=== PATIENT | male | born 1945 | race Caucasian/White ===

== ENCOUNTER → 2018-03-15 | Outpatient (CLI) | payer OTHER | LOC: BHFA 11:00 | PROVIDERS: ATTEND Internal Medicine Cardiovascular Disease | DX: Z01.818 Encounter for other preprocedural examination (principal); I25.10 Atherosclerotic heart disease of native coronary artery without angina pectoris ==

== ENCOUNTER → 2018-04-20 | Outpatient (CLI) | payer OTHER | LOC: FIMAGING 08:40 | PROVIDERS: ATTEND Orthopaedic Surgery | DX: Z01.818 Encounter for other preprocedural examination (principal); M17.12 Unilateral primary osteoarthritis, left knee ==

== ENCOUNTER 2018-05-19 06:58 | Inpatient (IN) | payer OTHER ==
--- NOTE | 2018-05-19 05:46 | PDHPUP ---
History & Physical Update H&P update statement: This history and physical update is based on an assessment of the patient which was completed after admission or registration (within 24 hours), but prior to the surgery/procedure. H&P update: H&P reviewed & patient examined, no change in patient's condition since H&P completed
[~2018-05-19 06:58] MED LIST: ROPIVACAINE 0.2% 80 MG, EPINEPHrine 0.2 MG, KETOROLAC TROMETHAMINE 30 MG in SYRINGE 0 ML IU ONE; TRANEXAMIC ACID 3,000 MG in NS (SYRINGE) 50 ML IRR ONE
[2018-05-19] MEDS ORDERED: ACETAMINOPHEN 325 MG TAB PO ONE (07:15)
[2018-05-19] MEDS ORDERED: ceFAZolin 2 GM/DEXTROSE 100 ML IV ONE (07:15)
[2018-05-19] MEDS ORDERED: FAMOTIDINE 20 MG TAB PO ONE (07:15)
[2018-05-19] MEDS ORDERED: DEXAMETHASONE 4 MG/ML VIAL IVP ONE (07:15)
[2018-05-19] MEDS ORDERED: LR 1,000 ML IV ONE (07:19)
[2018-05-19] MEDS ORDERED: TRANEXAMIC ACID 3,000 MG/50 ML BAG IRR ONE (07:38)
[2018-05-19] MEDS ORDERED: PROPOFOL/EMULSION 500 MG/50 ML BOTTLE IV ONE (08:03)
[2018-05-19] MEDS ORDERED: LIDOCAINE 2% 5 ML SDV ONE (08:06)
[2018-05-19] MEDS ORDERED: BUPIVACAINE 0.5% 30 ML SDV ONE (08:53)
[2018-05-19] MEDS ORDERED: MIDAZOLAM 2 MG/2 ML VIAL ONE (08:58)
[2018-05-19] MEDS ORDERED: MIDAZOLAM 2 MG/2 ML VIAL IVP ONE (09:00)
--- NOTE | 2018-05-19 09:01 | PDANEPAE ---
ANE History of Present Illness left knee OA ANE Past Medical History - Cardiovascular History Hx Hypertension: No Hx Arrhythmias: No Hx Chest Pain: No Hx Coronary Artery / Peripheral Vascular Disease: Yes Hx CHF / Valvular Disease: No Hx Palpitations: No Cardiovascular History Comment: PTCA 1994. hypercholesterolemia - Pulmonary History Hx COPD: No Hx Asthma/Reactive Airway Disease: No Hx Recent Upper Respiratory Infection: No Hx Oxygen in Use at Home: No Hx Sleep Apnea: No Sleep Apnea Screening Result - Last Documented: Negative - Neurologic History Hx Cerebrovascular Accident: No Hx Seizures: No Hx Dementia: No - Endocrine History Hx Diabetes: No Hypothyroid: No Hyperthyroid: No Obesity: no - Renal History Hx Renal Disorders: No - Liver History Hx Hepatic Disorders: No - Neurological & Psychiatric Hx Hx Neurological and Psychiatric Disorders: No - Cancer History Hx Cancer: No - Congenital Disorder History Hx Congenital Disorders: No - GI History Hx Gastrointestinal Disorders: Yes Gastrointestinal History Comment: mild reflux - Other Health History Other Health History: wears glasses for reading. sinusitis - Chronic Pain History Chronic Pain: No - Surgical History Prior Surgeries: right total hip, 2012. left clavicle screws plates, 1999. achiles repair, 2006. left hand compression release, 2013 ANE Review of Systems Review of systems is: negative Review of Systems: - Exercise capacity METS (RN): 5 METS ANE Patient History - Allergies Allergies/Adverse Reactions: No Known Allergies Allergy (Verified 04/26/18 10:28) - Home Medications Home medications: home medication list seen and reviewed Home Medications: Aller-Jaimie D 5-120 mg Tablet 04/26/18 [Last Taken 05/19/18] Aspirin 81mg (*) 04/26/18 [Last Taken 05/05/18] Elemental Zinc 04/26/18 [Last Taken 05/05/18] Omeprazole 04/26/18 [Last Taken 05/18/18] Potassium Cl 04/26/18 [Last Taken 05/18/18] Pravastatin Sodium 04/26/18 [Last Taken Unknown] Vitamin C 04/26/18 [Last Taken 05/05/18] Vitamin D3 04/26/18 [Last Taken 05/05/18] - NPO status NPO Since - Liquids (Date): 05/19/18 NPO Since - Liquids (Time): 04:30 NPO Since - Solids (Date): 05/18/18 NPO Since - Solids (Time): 19:00 - Anes Hx Anes Hx: no prior problems - Smoking Hx Smoking Status: Former smoker - Family Anes Hx Family Hx Anesthesia Complications: none ANE Labs/Vital Signs - Vital Signs Blood Pressure: 142/90 Heart Rate: 69 Respiratory Rate: 16 O2 Sat (%): 89 Height: 171.45 cm Weight: 79.379 kg ANE Physical Exam - Airway Neck exam: FROM Mallampati Score: Class 2 Mouth exam: normal dental/mouth exam - Pulmonary Pulmonary: no respiratory distress - Cardiovascular Cardiovascular: regular rate and rhythym - ASA Status ASA Status: II ANE Anesthesia Plan Anesthesia Plan: spinal Regional Anesthesia: single shot NB, adductor canal FNB
--- NOTE | 2018-05-19 09:01 | POSTANESTH ---
Post Anesthetic Evaluation Cardiovascular Status: Normal, Stable Respiratory Status: Normal, Stable Level of Consciousness/Mental Status: Can Participate in Eval, Alert and Oriented Pain Control: Adequate, Prn Tx Ordered Nausea/Vomiting Control: Adequate, Prn Tx Ordered Complications Possibly Related to Anesthesia: None Noted
--- NOTE | 2018-05-19 09:40 | PDGENHP ---
History and Physical History and Physical: Last amended by Sangeeta Gómez PA-C on 05/19/2018 at 7:18am View Changes: Patient Name BRENDEN GOOD (72yo, M) ID# [id number] Appt. Date/Time 04/27/2018 10: 00AM 1945 Service Dept. MAIN OFFICE Provider SANGEETA GÓMEZ PA-C Insurance Med Primary: [place] (MEDICARE) Insurance # : [id number] Med Secondary: [employer] Insurance # : [id number] Policy/Group # : [id number] Prescription: DSTPSDIR - Member is eligible. details Chief Complaint Left CBB_discuss left knee surgery Pre-Op Left TKA Patient's Care Team Orthopedic Surgeon: JACQUI RODRIGUEZ MD: [id number] [facility] [address], [place] [address], , Orthopedic Surgeon: JOCELYN GÓMEZ M.D. Patient's Pharmacies [id number] ([facility]): [address] [facility] [id number], Ph [phone], Vitals Ht: 5 ft 8 in 04/27/2018 10:01 am Wt: 175 lbs 04/27/2018 10:02 am BMI: 26.6 04/27/2018 10:02 am BP: 122/85 sitting L arm 04/27/2018 10:01 am Pulse: 68 bpm 04/27/2018 10:01 am Allergies Reviewed Allergies Medications Reviewed Medications celecoxib 200 mg capsule take 2 capsules the night before surgery with dinner then one tab once daily with food for 3 weeks 04/27/18 prescribed Sangeeta Gómez PA-C omeprazole 40 mg capsule,delayed release 02/15/18 filled [employer] oxyCODONE 5 mg tablet Take 2 tabs every 4 hours as needed for pain 04/27/18 prescribed Sangeeta Gómez PA-C pravastatin 80 mg tablet 02/15/18 filled [employer] Vaccines None recorded. Problems Reviewed Problems Anxiety Osteoarthritis of knee - Onset: 07/15/2017 Chondromalacia of patella - Onset: 02/10/2018, Right Shoulder pain, Left Inflammation of sacroiliac joint Neck pain - Onset: 01/05/2017 Low back pain Prepatellar bursitis - Onset: 02/10/2018, Right Pain in buttock Glenoid labrum tear Family History Reviewed Family History Father - Heart disease - Malignant neoplastic disease Mother - Malignant neoplastic disease Sister - Malignant neoplastic disease Brother - Malignant neoplastic disease - Malignant neoplastic disease Social History Reviewed Social History Smoking Status: Former smoker Non-smoker Occupation: retired Chewing tobacco: none Alcohol intake: Occasional Alcohol-years of use: 55 Caffeine intake: Moderate Exercise level: Heavy Sporting activities: golf, hiking, treadmill, stationary bike, light weightlifting Hand Dominance: Right Education: 2 Year College Live alone or with others?: with others Surgical History Reviewed Surgical History Past Medical History Reviewed Past Medical History Heart Attack (CA): Y Screening None recorded. HPI [place] knee HPI Reported by patient. Location of symptoms: Left knee Symptoms: Pain; Decreased ROM Severity: severe Duration: many years Onset: chronic Exacerbated by: Walking; Physical activity; performs with symptoms Alleviated by: activity modifications; NSAIDs; PT/OT; cortisone injection; viscosupplement injection Associated Symptoms: no numbness; swelling Previous Surgery: surgical procedure: (open and scope menisectomy) Prior studies: radiographs Previous Injections: helped a little Previous PT: helped a little Work Related: no Notes: patient had many questions regarding surgery. All were addressed today. ROS ROS as noted in the HPI Physical Exam Patient is a 72-year-old male. Constitutional: General Appearance: healthy-appearing, NAD, and normal body habitus. Gait and Station: Appearance: ambulates with no assitive devices and antalgic gait. Cardiovascular System: Arterial Pulses Left: dorsalis pedis normal and posterior tibialis normal. Edema Left: no edema. Varicosities Left: no varicosities and capillary refill test normal. Lymph Nodes: Inspection/Palpation Left: no popliteal LAD. Knees: Inspection Left: no deformity, induration, warmth, or erythema and normal axial alignment and swelling. Bony Palpation Left: no tenderness of the lateral wall trochlear groove, the medial wall trochlear groove, the medial femoral condyle, or the adductor tubercle and tenderness of the medial joint line and the lateral joint line. Soft Tissue Palpation Left: no tenderness of the lateral patellar retinaculum, the medial patellar retinaculum, the prepatellar bursa, the patellar tendon, the fat pad, the medial collateral ligament, the pes anserinus, the saphenous nerve, the iliotibial tract, the lateral collateral ligament, the biceps femoris tendon, or the gastrocnemius and tenderness of the popliteal fossa. Active Range of Motion Left: crepitus and pain at extreme limits of range and normal, flexion normal, and extension normal. Stability Left: no laxity or subluxation and anterior drawer sign negative, posterior drawer sign negative, and ligamentous instability lateral with varus stress at 20-30 deg. grade 1. Strength Left: no hamstring weakness or quadriceps weakness and flexion 5/5 and extension 5/5. Skin: Left Lower Extremity: normal and (normal) lower extremities: knee: left: incision: well-healed. Neurologic: Sensation on the Left: T12 normal, L1 normal, L2 normal, L3 normal, L4 normal, L5 normal, and S1 normal. Psychiatric: Orientation: oriented to time, place, and person. Mood and Affect: normal mood and affect and active and alert. Heart Rate And Rhythm (normal) heart rate and rhythm. Lungs respirations unlabored. Assessment / Plan Left knee OA Previous xrays were reviewed today reveal severe DJD Discussed operative and non-operative interventions for diagnosis of knee arthritis with patient. Recommend Left TKA for treatment. Discussed risks and benefits of operative intervention including but not limited to bleeding, infection, need for further surgery, blood clots, blood clots going to the lungs and rare perioperative complications including stroke, heart attack and . Patient understands risks and wishes to proceed. Informed consent was obtained today Postoperative medications were written today including ASA for VTE prophylaxis postop Left TKAscheduled received cards letter, CBC WNL, Ct obtained. PCP appt on . history of DENISE in 2011 anterior approach pain controlled with oxycodone comorbidities: GERD and hyperlipidemia, history of skin issues Patient was given a hard copy of CI Beneficiary Notification Letter at today' s appointment. 1. Acute postoperative pain G89.18: Other acute postprocedural pain oxycodone 5 mg tablet - Take 2 tabs every 4 hours as needed for pain Qty: 84 tablet(s) Refills: 0 Pharmacy: [facility] [id number] Note to Pharmacy: postop TKA pain medication 2. Prophylactic anticoagulation given Z76.89: Persons encountering health services in other specified circumstances celecoxib 200 mg capsule - take 2 capsules the night before surgery with dinner then one tab once daily with food for 3 weeks Qty: 23 capsule(s) Refills : 0 Pharmacy: [facility] [id number] Note to Pharmacy: no refills, patient must contact provider first 3. Localized, primary osteoarthritis M17.12: Unilateral primary osteoarthritis, left knee Return to Office LEDY Apple for OT/PT New Eval 30 at PT on 05/29/2018 at 01:30 PM LEDY Apple for OT/PT Follow-Up at PT on 06/01/2018 at 10:30 AM Sangeeta Gómez PA-C for Post Op Visit at MAIN OFFICE on 06/05/2018 at 11:30 AM Jocelyn Gómez M.D. for Post Op Visit at MAIN OFFICE on 06/29/2018 at 11 :00 AM Jocelyn Gómez M.D. for Post Op Visit at MAIN OFFICE on 08/03/2018 at 11 :45 AM Amendment Sign-Off Encounter signed-off by Sangeeta Gómez PA-C, 05/19/2018. Encounter performed and documented by Sangeeta Gómez PA-C Encounter reviewed & signed by Sangeeta Gómez PA-C on 04/27/2018 at 10:27am Amendment closed by Sangeeta Gómez PA-C on 05/19/2018 at 7:18am There is not enough information to calculate an E&M code
[2018-05-19] MEDS ORDERED: fentaNYL 100 MCG/2 ML INJ ONE (09:44)
[2018-05-19] MEDS ORDERED: HYDROCODONE/APAP 5/325 TAB PO PRN (09:46)
[2018-05-19] MEDS ORDERED: LR 500 ML IV PRN (09:46)
[2018-05-19] MEDS ORDERED: ACETAMINOPHEN 500 MG TAB PO PRN (09:46)
[2018-05-19] MEDS ORDERED: ONDANSETRON 4 MG/2 ML VIAL IVP PRN ×2 (09:46→10:51)
[2018-05-19] MEDS ORDERED: NALOXONE HCL 0.4 MG/ML INJ IVP PRN (09:46)
[2018-05-19] MEDS ORDERED: oxyCODONE IR 5 MG TAB PO PRN ×2 (09:46→10:51)
[2018-05-19] MEDS ORDERED: ALBUTEROL 3 ML DEYVIAL IH PRN (09:46)
[2018-05-19] MEDS ORDERED: fentaNYL 100 MCG/2 ML INJ IVP PRN (09:46)
[2018-05-19] MEDS ORDERED: ePHEDrine SULFATE 25 MG/5 ML SYR ONE (09:53)
--- NOTE | 2018-05-19 10:50 | POSTOPPROG ---
Post Op Note Date of Operation: 05/19/18 Surgeon: Sejal Miller Poultry Farmer Egg: kiel miller PA-C Anesthesiologist: dr. hutson Anesthesia: Spinal, Other (Specify) Pre-op Diagnosis: left knee OA Post-op Diagnosis: same Indication: left knee pain Procedure: L TKA robot assisted and sensor assisted Findings: severe knee OA Inf/Abcess present in the surg proc area at time of surgery?: No EBL: 50-100
[2018-05-19] MEDS ORDERED: PROMETHAZINE HCL 25 MG SUPPR PR PRN (10:51)
[2018-05-19] MEDS ORDERED: ONDANSETRON DISINTEGRATING 4 MG TAB PO PRN (10:51)
[2018-05-19] MEDS ORDERED: METOCLOPRAMIDE 10 MG/2 ML VIAL IVP PRN (10:51)
[2018-05-19] MEDS ORDERED: MAGNESIUM HYDROXIDE 30 ML UDCUP PO PRN (10:51)
[2018-05-19] MEDS ORDERED: CYCLOBENZAPRINE 10 MG TAB PO PRN (10:51)
[2018-05-19] MEDS ORDERED: DIPHENOXYLATE/ATROPINE LOMOTIL 1 TAB PO PRN (10:51)
[2018-05-19] MEDS ORDERED: TEMAZEPAM 15 MG CAP PO PRN (10:51)
[2018-05-19] MEDS ORDERED: PROMETHAZINE HCL 25 MG/ML INJ IVP PRN (10:51)
[2018-05-19] MEDS ORDERED: LACTULOSE 20 GM/30 ML UDCUP PO PRN (10:51)
[2018-05-19] MEDS ORDERED: diphenhydrAMINE 25 MG CAP PO PRN (10:51)
[2018-05-19] MEDS ORDERED: POLYETHYLENE GLYCOL 3350 17 GM PKT PO PRN (10:51)
[2018-05-19] MEDS ORDERED: BISACODYL 10 MG SUPP PR PRN (10:51)
[2018-05-19] MEDS ORDERED: LR 1,000 ML IV SCH (11:00)
[2018-05-19] MEDS: ACETAMINOPHEN 325 MG TAB PO SCH ×2 (12:26→17:34)
--- NOTE | 2018-05-19 13:33 | PDMN ---
Medical Necessity Medical necessity: Pt meets IP criteria per PA; est los >2 mn s/p L TKA (cpt 62330); "concern for pain control, GERD, hyperlipidemia & skin issues"; per IP order 05/19/18
[2018-05-19] MEDS: ceFAZolin 2 GM/DEXTROSE 100 ML IV SCH (17:33)
[2018-05-19] MEDS: ASPIRIN 81 MG CHEWABLE TAB PO SCH (20:43)
[2018-05-19] MEDS: FAMOTIDINE 20 MG TAB PO SCH (20:43)
[2018-05-19] MEDS: SENNOSIDES/DOCUSATE SODIUM TAB PO SCH (20:43)
[2018-05-20] MEDS: ACETAMINOPHEN 325 MG TAB PO SCH ×2 (00:02→05:11)
[2018-05-20] MEDS: ceFAZolin 2 GM/DEXTROSE 100 ML IV SCH (00:05)
[2018-05-20 08:12] VITALS: BP 134/77
[2018-05-20] MEDS ORDERED: PRAVASTATIN SODIUM 40 MG TAB PO SCH (09:00)
[2018-05-20] MEDS ORDERED: PANTOPRAZOLE SODIUM 40 MG TAB PO SCH (09:00)
[2018-05-20] MEDS: FAMOTIDINE 20 MG TAB PO SCH (09:24)
[2018-05-20] MEDS: ASPIRIN 81 MG CHEWABLE TAB PO SCH (09:24)
[2018-05-20] MEDS: SENNOSIDES/DOCUSATE SODIUM TAB PO SCH (09:25)
--- NOTE | 2018-05-20 11:12 | ASMTLACE ---
LACE Length of stay for Answers: 2 days current admission Acuity / Level of Answers: Yes Care: Did the patient have an inpatient admission? Comorbidities - select Answers: Coronary Artery Disease all that apply # of Emergency department Answers: 0 visits in the last 6 months Score: 7 Date Signed: 05/20/2018 11:11 AM Electronically Signed By:LINH Alarcon
--- NOTE | 2018-05-20 11:13 | SOAPPROG ---
SOAP Progress Note Assessment/Plan: Assessment: Patient is doing well POD 1 s/p L TKA Pain management: pain is well controlled on oral pain meds. VTE ppx: recommend aspirin 81 mg BID for 4 weeks, cont SHEEBA and SCDs D/c planning: patient is doing better than anticipated. Mild HTN while inpatient at the hospital. Patient is eager for discharge due to snow. d/c to home today pending release from PT Plan: 05/20/18 11:12 Subjective: Nancy is doing well today, denies SOB, chest pain and N/V Objective: Vital Signs Temp Pulse Resp BP Pulse Ox 36.5 C 86 16 134/77 H 93 05/20/18 08:00 05/20/18 08:00 05/20/18 08:00 05/20/18 08:00 05/20/18 08:00 Laboratory Results 05/20/18 04:50 05/19/18 05/20/18 05/21/18 05:59 05:59 05:59 Intake Total 3020 Output Total 2730 600 Balance 290 -600 LLE: incision dressing is clean and dry,NVI, +pf/df ICD10 Worksheet Patient Problems: Problems Problem Status Onset Primary localized osteoarthritis of left knee Acute
--- NOTE | 2018-05-20 14:00 | GDS ---
ADMISSION DIAGNOSIS: Left knee osteoarthritis. DISCHARGE DIAGNOSIS: Left knee osteoarthritis. PROCEDURE: Left total knee arthroplasty, robotic-assisted. VTE PROPHYLAXIS: Recommend aspirin 81 mg twice daily for 4 weeks. PLAN: Followup scheduled with Dr. Gómez's office 06/05 at 11:30 a.m. /[id number]/MODL
--- NOTE | 2018-05-21 12:05 | GOP ---
DATE OF OPERATION: 05/19/2018 SURGEON: Soledad Gómez MD FISHING VESSEL DECKHAND: Sangeeta Gómez, PENNY ANESTHESIA: Spinal. PREOPERATIVE DIAGNOSIS: Left knee osteoarthritis. POSTOPERATIVE DIAGNOSIS: Left knee osteoarthritis. PROCEDURE PERFORMED: Left total knee arthroplasty with computer navigation, robotic assist. FINDINGS: Severe medial and patellofemoral osteoarthritis. ESTIMATED BLOOD LOSS: 30 cc. INDICATIONS: The patient is a 72-year-old male with severe and progressive pain and deformity of the left knee unresponsive to conservative care. The risks and benefits of surgical intervention were e xplained in detail. DESCRIPTION OF PROCEDURE: The patient was brought to the operative room and placed on the table in t he supine position. Spinal anesthesia was induced without difficulty. A pneumatic tourniquet was appl ied about the left proximal thigh, and the leg was prepped and draped in a sterile fashion. The leg h older was applied. After exsanguination by elevation the tourniquet was inflated to 250 mmHg. Incision was made anterior medial from the tibial tuberosity to a point approximately 2 cm proximal t o the superior pole of the patella for the type 2 knee morphology. Medial parapatellar arthrotomy was carried out from the superior pole of the patella and posteriorly in line with the fibers of the Typ e II VMO. The medial collateral ligament was elevated and the infrapatellar fat pad was resected. The patella was everted and the articular surface was excised. A 38 mm patellar button was placed. Attention was turned first to the distal aspect of the femur. After exposure of the femur, 2 half pi ns were placed for fixation of the femoral array. In a similar fashion, 2 pins were placed anteromed ial on the tibia for fixation of the tibial array. External land marking and registration of the hip center were performed without difficulty. Internal femoral and tibial registration were carried out without difficulty and the femoral and tibial checkpoints were placed and verified for accuracy. Attention was turned to the femur. The foot print for the size 5 femoral component was cut with the saw using the [email or web address] robotic system and verified for accuracy against the CT based plan. In a similar f ashion, the saw was used to cut the footprint for the size 6 tibial component using the [email or web address] system an d verified for accuracy against the CT based plan. The tibial articular surface was excised without d ifficulty, followed by the intercondylar box cut. The knee was extended and the remnants of the medial and lateral meniscus were excised. The posterior capsule was injected with ropivacaine, epinephrine and Toradol. A size 6 tibial tray was positioned . Trial reduction was then carried out. There was excellent range of motion, alignment, and stability using the 6 x 9 mm polyethylene. All trials were then removed. The joint was thoroughly irrigated and carefully dried. The press-fit c omponents were implanted. The permanent 6 x 9 mm polyethylene was placed without difficulty. The tourniquet was deflated and all bleeders were coagulated. The wound was thoroughly irrigated and closed using interrupted sutures of 2-0 Vicryl for the joint capsule. The subcu was closed with 3-0 V icryl and the skin with 4-0 Monocryl. Dermabond and Steri-Strips were applied followed by a compress marina dressing. The patient was then moved from the operating room to the recovery room in good conditi on, having tolerated the procedure well. /[id number]/MODL
== END 2018-05-20 11:27 | disposition home or self-care (01) | DRG 470 ==
LOC: F3N 06:58 → OBSVTOIN 10:53 → F3N 12:00
PROVIDERS: ADMIT Orthopaedic Surgery; ATTEND Orthopaedic Surgery
DX: M17.12 Unilateral primary osteoarthritis, left knee (principal); E78.00 Pure hypercholesterolemia, unspecified; Z96.641 Presence of right artificial hip joint
CPT/HCPCS: 97110-GP; 97116-GP; 97161-GP; G8978-GP-CJ; G8978-GP-CK; G8979-GP-CJ; J0171; J0690; J1100; J1885; J2250; J2704; J2795; J3010

== ENCOUNTER → 2018-06-22 | Outpatient (CLI) | payer OTHER | END | disposition home or self-care (01) | LOC: FIMAGING 14:20 | PROVIDERS: ATTEND Internal Medicine | DX: R05 Cough (principal); R50.9 Fever, unspecified; R89.9 Unspecified abnormal finding in specimens from other organs, systems and tissues; N39.0 Urinary tract infection, site not specified; Z51.81 Encounter for therapeutic drug level monitoring ==

== ENCOUNTER → 2018-06-23 | Outpatient (CLI) | payer OTHER | LOC: CIMAGING 17:23 | PROVIDERS: ATTEND Internal Medicine | DX: I82.412 Acute embolism and thrombosis of left femoral vein (principal); I82.432 Acute embolism and thrombosis of left popliteal vein; R60.0 Localized edema | CPT/HCPCS: 93971-PO ==